=== PATIENT | female | born 1935 | race Caucasian/White ===

== ENCOUNTER 2016-11-29 09:09 | Outpatient (CLI) | payer MEDICARE, OTHER ==
[2014-03-19 10:57] VITALS: BP 138/72
[2016-11-29 17:40] LABS: TOTAL PROTEIN 6.9 g/dL (6.0-8.5)
== END 2016-11-29 09:15 ==
LOC: LAB 09:09
PROVIDERS: ATTEND Family Medicine
DX: I10 Essential (primary) hypertension (principal); E11.9 Type 2 diabetes mellitus without complications; E79.0 Hyperuricemia without signs of inflammatory arthritis and tophaceous disease
CPT/HCPCS: 36415; 80053; 80061; 83036; 84550

== ENCOUNTER 2017-04-16 14:17 | Outpatient (CLI) | payer MEDICARE, OTHER ==
[2014-03-19 10:57] VITALS: BP 138/72
== END 2017-04-16 14:18 ==
LOC: RT 14:17
PROVIDERS: ATTEND Physician Assistant
DX: I49.9 Cardiac arrhythmia, unspecified (principal)